=== PATIENT | female | born 1935 | race Caucasian/White ===

== ENCOUNTER → 2018-01-12 | Outpatient (CLI) | payer MEDICARE ==
--- NOTE | 2018-01-12 14:17 | RAD ---
EXAM: Chest, 2 views. HISTORY: Shortness of air. COMPARISON: None. FINDINGS: Frontal and lateral views of the chest are obtained. There are coarse diffuse increased interstitial markings. There is no consolidation, pleural effusion or pneumothorax. There is a prominent cardiac silhouette. There are prominent central pulmonary vessels. There is mild elevation of the right hemidiaphragm. There is lumbar scoliosis. IMPRESSION: Coarse diffuse increased interstitial markings due to chronic interstitial lung disease or atypical infiltrate. Correlation with prior studies may be useful if available. Electronically signed by: Jeri Gregorio MD (01/12/2018 2:14 PM) [place] [id number]
== END | disposition home or self-care (01) ==
LOC: DXRAD 13:25
PROVIDERS: ATTEND Internal Medicine Pulmonary Disease
DX: R05 Cough (principal); J98.6 Disorders of diaphragm; M41.86 Other forms of scoliosis, lumbar region
CPT/HCPCS: 71046

== ENCOUNTER → 2019-02-25 | Outpatient (CLI) | payer MEDICARE ==
--- NOTE | 2019-02-25 15:48 | RAD ---
DATE: 02/25/2019 EXAM: DIGITAL SCREEN BILAT W/CAD HISTORY: Routine screening COMPARISON: 04/03/2015, 04/28/2016, 07/03/2017 mammographic exams This study was interpreted with the benefit of Computerized Aided Detection (CAD). Breast Density: HETERO The breast parenchyma is heterogenously dense, which could reduce sensitivity of mammography. Breast parenchyma level C. FINDINGS: Tomosynthesis imaging was attempted to be performed for this patient's exam. The patient reportedly was not able to undergo tomosynthesis imaging for all projections of this exam. Biopsy clip marker involves the left upper central breast. No suspicious calcifications, masses, or distortion. IMPRESSION: Stable BI-RADS CATEGORY: 1 NEGATIVE RECOMMENDED FOLLOW-UP: 12M 12 MONTH FOLLOW-UP PQRS compliance statement: Patient information was entered into a reminder system with a target due date for the next mammogram. Mammography is a sensitive method for finding small breast cancers, but it does not detect them all and is not a substitute for careful clinical examination. A negative mammogram does not negate a clinically suspicious finding and should not result in delay in biopsying a clinically suspicious abnormality. "Our facility is accredited by the [employer] Mammography Program."
== END | disposition home or self-care (01) ==
LOC: MAMMO 10:21
PROVIDERS: ATTEND Family Medicine
DX: Z12.31 Encounter for screening mammogram for malignant neoplasm of breast (principal)
CPT/HCPCS: 77067

== ENCOUNTER → 2019-03-02 | Outpatient (CLI) | payer MEDICARE ==
[~2019-03-02] MED LIST: AZIT250T PO; CALC-56 PO; CEFD300C PO; CHOL200027 PO; LISI-334 PO; METO-247 PO; MULT-245 PO; OMEP20CA16 PO; VIT1TABL34 PO
--- NOTE | 2019-03-02 17:00 | RAD ---
EXAM: Dual energy x-ray absorptiometry (DEXA). HISTORY: Postmenopausal female presents for osteoporosis screening. COMPARISON: None. TECHNIQUE: Dual energy x-ray absorptiometry of the lumbar spine, right hip and left forearm was performed. Calculation of bone mineral density based on standard deviations above or below the expected young adult normal value (T-score) was completed. FINDINGS: The average bone mineral density in the 1st through 4th lumbar vertebrae is 1.425 g/cmxcm, corresponding with a T-score of 2.0. The average total bone mineral density in the right hip is 0.642 g/cmxcm, corresponding with a T-score of -2.5. The average total bone mineral density in the left radius is 0.377 g/cmxcm, corresponding with a T-score of -4.7. IMPRESSION: 1. Osteoporosis measured at the left forearm and borderline osteoporosis measured at the right hip. 2. Normal bone mineral density measured at the lumbar spine. Note: Definitions established by the World Health Organization: 1. Normal: T-score is -1.0 or above. 2. Osteopenia: T-score is between -1.0 and -2.5 . 3. Osteoporosis: T-score is -2.5 or below. Electronically signed by: Jeri Gregorio MD (03/02/2019 4:57 PM) [place] [id number]
--- NOTE | 2019-03-03 08:22 | RAD ---
EXAM: 1. Frontal pelvis with two-view right hip. 2. Right femur 2 views. HISTORY: Pelvic and right femoral pain. COMPARISON: None. FINDINGS: No acute fractures are identified throughout. There are changes of internal fixation of a chronic left infratrochanteric fracture. Small osteophytes indicate mild right hip osteoarthritis. The joint spaces of the left hip are maintained. Osteopenia appears mild for patient age. There is mild medial compartmental osteoarthritis at the right knee. There is a moderate lumbar dextroscoliosis with moderate to severe degenerative disc disease throughout the lower lumbar spine. Surgical clips and an anastomotic suture line are noted in the left hemipelvis. Calcifications in the right hemipelvis are indeterminate but may represent phleboliths. IMPRESSION: 1. Mild right hip osteoarthritis. 2. Mild medial compartmental osteoarthritis of the right knee. Electronically signed by: Analisa Sellers MD (03/03/2019 8:19 AM) [facility]
== END | disposition home or self-care (01) ==
LOC: DXRAD 14:58
PROVIDERS: ATTEND Family Medicine
DX: M81.0 Age-related osteoporosis without current pathological fracture (principal); M16.11 Unilateral primary osteoarthritis, right hip; M17.11 Unilateral primary osteoarthritis, right knee; M51.36 Other intervertebral disc degeneration, lumbar region; M25.751 Osteophyte, right hip
CPT/HCPCS: 73502; 73552; 77080; 77081

== ENCOUNTER 2019-03-17 15:28 | Inpatient (IN) | payer MEDICARE ==
[~2019-03-17] VITALS: Ht 160 cm; Wt 42.7 kg
[2019-03-17] MEDS ORDERED: IV NORMAL SALINE 1,000ML 1,000 ML IV SCH (15:48)
--- NOTE | 2019-03-17 15:57 | PHYS DOC ---
Past History Additional Past Medical Histor: pulmonary fibrosis Smoking: Non-smoker Alcohol Use: None Adult General Chief Complaint Chief Complaint: SHORTNESS OF BREATH HPI HPI Patient is an 84-year-old female, with a history of pulmonary fibrosis, on 2 L of oxygen chronically, who presents to the emergency department for increasing shortness of breath over the past several days. She recently returned from visiting family in [place] for the . She denies any pain, or increasing cough compared to her baseline cough with her pulmonary fibrosis. She has not had any fevers or chills, denies any chest pain, waking, or orthopnea. She went to see her PCP today, we did some basic blood tests (CBC and BMP which were drawn prior to arrival have been reviewed), and had ordered an outpatient CT of her chest, due to tachycardia, to rule out a pulmonary embolism, but the patient's creatinine was too high and she was thus sent to the emergency department. The patient denies any pain. She has not had any nausea, vomiting, or diarrhea. Her daughter reports that she has not been eating as well as she normally does. There are no alleviating or exacerbating factors to her symptoms otherwise. Review of Systems Review of Systems Constitutional: Denies fever or chills [] Eyes: Denies change in visual acuity, redness, or eye pain [] HENT: Denies nasal congestion or sore throat [] Respiratory: No additional information not addressed in HPI [] Cardiovascular:The patient denies any chest pain, palpitations, or orthopnea [] GI: Denies abdominal pain, nausea, vomiting, bloody stools or diarrhea [] : Denies dysuria or hematuria [] Musculoskeletal: Denies back pain or joint pain [] Integument: Denies rash or skin lesions [] Neurologic: Denies headache, focal weakness or sensory changes [] Endocrine: Denies polyuria or polydipsia [] All other systems were reviewed and found to be within normal limits, except as documented in this note. Current Medications Current Medications Current Medications Medications (Trade) Dose Ordered Sig/Zach Start Time Stop Time Status Last Admin Dose Admin Sodium Chloride 1,000 ml @ 100 mls/hr Q10H 03/17/19 15:48 03/18/19 01:47 UNV Allergies Allergies Allergies Coded Allergies Type Severity Reaction Last Updated Verified No Known Drug Allergies 03/17/19 No Physical Exam Physical Exam PHYSICAL EXAM: CONSTITUTIONAL: Well developed, well nourished HEAD: normocephalic, atraumatic EENT: PERRL, EOMI. Conjunctivae normal color, sclerae non-icteric; moist mucous membranes. NECK: Supple, non-tender; no meningismus. LUNGS: Breathing is mildly labored, there are diffuse crackles in all lung hinkle, with normal air movement otherwise. HEART: Irregularly irregular rhythm, no murmur CHEST: No deformity; non-tender ABDOMEN: The abdomen is soft, and non-tender, no masses or bruits. EXTREM: Normal ROM; no deformity, no calf tenderness. Normal pulses palpable in all extremities. There is no pedal edema. SKIN: No rash; no diaphoresis NEURO: Alert; normal speech and cognition; CN's grossly intact; strength grossly intact without focal deficit. BACK: No CVA TTP. Current Patient Data Lab Results Current Medications Medications (Trade) Dose Ordered Sig/Zach Route PRN Reason Start Time Stop Time Status Last Admin Dose Admin Sodium Chloride 1,000 ml @ 100 mls/hr Q10H IV 03/17/19 15:48 03/18/19 01:47 03/17/19 15:48 EKG EKG []Normal sinus rhythm at a rate of 115 beats for minute with frequent APCs, normal axis, normal intervals, nonspecific ST/T changes are present. Radiology/Procedures Radiology/Procedures PROCEDURE: CHEST PA & LATERAL EXAM: Chest, 2 views. HISTORY: Shortness of breath. COMPARISON: 01/12/2018 FINDINGS: 2 views of the chest are obtained. There is right upper lobe consolidated infiltrate superimposed on coarse likely chronic interstitial changes throughout the right greater than left lung. There is biapical pleural thickening likely due to scarring. There is a stable cardiac silhouette. There are calcified granulomas. There is thoracolumbar scoliosis. IMPRESSION: 1. Right upper lobe consolidated infiltrate. Follow-up to confirm resolution and exclude a persistent underlying lesion. 2. Pulmonary fibrosis. There may be superimposed interstitial infiltrate.[] Course & Med Decision Making Course & Med Decision Making Pertinent Labs and Imaging studies reviewed. (See chart for details) []Blood tests from earlier today, prior to the ER visit, have been reviewed. The patient's condition Remains stable, I spoke with the hospitalist will admit the patient for further evaluation and treatment. Dragon Disclaimer Dragon Disclaimer This electronic medical record was generated, in whole or in part, using a voice recognition dictation system. Departure Departure: Impression: Primary Impression: Pneumonia Additional Impression: Pulmonary fibrosis Disposition: ADMITTED INPATIENT Condition: STABLE Referrals: ALMITA BRYAN MD (PCP) Problem Qualifiers JOHN HOGUE MD Mar 17, 2019 15:57
--- NOTE | 2019-03-17 15:58 | EKG ---
[address] [address] Test Date: 2019-03-17 Test Time: 15:56:53 Pat Name: ESTRELLA JOSEPH Department: Room: Gender: F Science Specialist: : [id number] Requested By: JOHN HOGUE Order Number: [id number] Reading MD: Measurements Intervals [place] Rate: 115 P: 49 NM: 140 QRS: 22 QRSD: 80 T: 7 QT: 338 QTc: 469 Interpretive Statements SINUS TACHYCARDIA ATRIAL PREMATURE COMPLEX(ES) QRS(T) CONTOUR ABNORMALITY CONSIDER INFERIOR MYOCARDIAL DAMAGE POSSIBLY ABNORMAL ECG RI6.01 No previous ECG available for comparison
--- NOTE | 2019-03-17 16:31 | RAD ---
EXAM: Chest, 2 views. HISTORY: Shortness of breath. COMPARISON: 01/12/2018 FINDINGS: 2 views of the chest are obtained. There is right upper lobe consolidated infiltrate superimposed on coarse likely chronic interstitial changes throughout the right greater than left lung. There is biapical pleural thickening likely due to scarring. There is a stable cardiac silhouette. There are calcified granulomas. There is thoracolumbar scoliosis. IMPRESSION: 1. Right upper lobe consolidated infiltrate. Follow-up to confirm resolution and exclude a persistent underlying lesion. 2. Pulmonary fibrosis. There may be superimposed interstitial infiltrate. Electronically signed by: Jeri Gregorio MD (03/17/2019 4:28 PM) [place] [id number]
[2019-03-17 16:45] LABS: ALBUMIN/GLOBULIN RATIO 0.6 (1.0-1.7); CALCIUM 9.4 mg/dL (8.5-10.1); CREATININE 1.7 mg/dL (0.6-1.0); GFR 28.7; POTASSIUM 3.9 mmol/L (3.5-5.1); TOTAL BILIRUBIN 0.4 mg/dL (0.2-1.0)
[2019-03-17 17:14] LABS: INFLUENZA A PATIENT NEGATIVE (NEGATIVE); INFLUENZA B PATIENT NEGATIVE (NEGATIVE)
[2019-03-17] MEDS ORDERED: IV NORMAL SALINE 250ML 250 ML ONE (17:24)
[2019-03-17] MEDS ORDERED: AZITHROMYCIN 500 MG VIAL. IV ONE (17:25)
[2019-03-17] MEDS ORDERED: cefTRIAXone SODIUM 1 GM VIAL ONE (17:25)
[2019-03-17] MEDS ORDERED: IV NORMAL SALINE 50ML 50 ML ONE (17:25)
[2019-03-17] MEDS ORDERED: AZITHROMYCIN 500 MG in IV NORMAL SALINE 250ML 250 ML IV ONE (17:30)
[2019-03-17 18:27] VITALS: BP 144/75
[2019-03-17] MEDS ORDERED: MULT-245 PO (18:38)
[2019-03-17] MEDS ORDERED: VIT1TABL34 PO (18:38)
[2019-03-17] MEDS ORDERED: OMEP-229 PO (18:38)
[2019-03-17] MEDS ORDERED: CHOL200027 PO (18:38)
[2019-03-17] MEDS ORDERED: CALC-56 PO (18:38)
[2019-03-17] MEDS ORDERED: LISI-334 PO (18:38)
[2019-03-17] MEDS ORDERED: METO-247 PO (18:38)
--- NOTE | 2019-03-17 19:19 | HP ---
ADMIT DATE: 03/17/2019 HISTORY OF PRESENT ILLNESS: The patient is an 84-year-old female patient who was seen today at her primary care physician's office with a complaint of shortness of breath over the past several days. She is known to have pulmonary fibrosis. She is usually on 2 liters of oxygen chronically. She has returned from visiting family in [place] over the . She denied any chest pain, any increasing cough. She has not had any fevers or chills. Denied any chest pain, orthopnea. She was seen by her primary care physician who did some lab works including a CBC and BMP, which were drawn prior to arrival. She ordered an outpatient CT of her chest due to tachycardia and to rule out pulmonary embolism, but the patient's creatinine was too high and she was thus sent to the emergency department. The patient denies any phlegm or hemoptysis. She was basically evaluated in the emergency room. Her chest x-ray showed that she has right upper lobe consolidated infiltrate and pulmonary fibrosis. There may be some superimposed interstitial infiltrate. Her EKG showed that she was in sinus tachycardia with a heart rate of 115 beats per minute. The patient was admitted with diagnosis of community-acquired pneumonia, was started on IV Rocephin and Zithromax and admitted for further evaluation. Her lab work showed that her white cell count was normal at 9600, hemoglobin 12, hematocrit 36.9, MCV 99 and platelet count 284,000. Her chemistry showed that her BUN is 59, creatinine 1.7. I unfortunately have no other values to compare with. PAST MEDICAL HISTORY: Significant for pulmonary fibrosis. She has also had hypertension. PAST SURGICAL HISTORY: Significant for partial colectomy for diverticulitis as well as appendectomy. She has also had left femur fracture, treated with intramedullary nailing. ALLERGIES: She has no known drug allergies. MEDICATIONS: She is currently on lisinopril 20 mg once a day, Toprol-XL 100 mg once a day, vitamin D 2000 International Unit once a day, calcium with vitamin D, multivitamin, PreserVision or Ocuvite 1 tablet once a day and omeprazole 20 mg once a day. FAMILY HISTORY: Noncontributory. SOCIAL HISTORY: She is , just moved recently to live in this community. She does not smoke, drink alcohol or use any recreational drugs. PHYSICAL EXAMINATION: GENERAL: When I examined her on arrival, she looked pale, cachectic, but no jaundice, cyanosis or thyromegaly. No jugular venous distention. No limb edema. VITAL SIGNS: Her heart rate was 95, blood pressure was 151/89, temperature was 98.4, respiratory rate was 16, and oxygen saturation was 95% on 2 liters of oxygen. HEAD, EYES, EARS, NOSE AND THROAT: Showed normocephalic, atraumatic. NECK: Supple. HEART: Showed normal first and second heart sounds. No gallop or murmur. CHEST: Shows central trachea, equally reduced expansion, reduced air entry, vesicular sounds with bilateral coarse crepitation, early inspiratory timing. She has also some crepitation in the right upper lobe anteriorly, best heard at the right infraclavicular area. I could not appreciate any rhonchi. ABDOMEN: Scaphoid, soft, nontender. NEUROLOGIC: She was awake, alert, responding appropriately. All cranial nerves intact. EXTREMITIES: She moves extremities without difficulty. She normally ambulates without assistance or assistive devices, although she uses a walker when she goes for longer distances. LABORATORY DATA: Her lab work on arrival to the emergency room showed white cell count of 9600, hemoglobin 12, hematocrit 36, MCV 99 and platelet count of 284,000 with a manual differential showed 95% polymorphs, 2% lymphocytes, 3% monocytes. Her prothrombin time was 9.3, INR of 0.9, aPTT was 32. Her serum sodium 142, potassium 3.9, chloride 103, bicarbonate 27, anion gap of 12, BUN 59, creatinine 1.7, estimated GFR was 28 mL per minute. Her glucose was 112, calcium was 9.4, lactic acid was 2, magnesium 2. Total bilirubin, AST, ALT, alkaline phosphatase were normal. Her beta natriuretic peptide was high at 2370. Total protein was 8, albumin 3. Her influenza A and B were negative and her chest x-ray showed that the patient has right upper lobe consolidated infiltrate, follow up to confirm resolution and exclude the persistent underlying lesion. She also has pulmonary fibrosis. There may be superimposed interstitial nephritis. The patient was admitted with diagnosis of community-acquired pneumonia involving her right upper lobe with the superimposed underlying pulmonary fibrosis and she is also known to have high blood pressure. IMPRESSION AND PLAN: Macular degeneration and gastroesophageal reflux disease. I will hold her lisinopril. Continue with IV fluids tonight. We will repeat her labs tomorrow. I will send urine for legionella antigen as well as streptococcal antigen and sputum for culture and sensitivity. CRESENCIO RENEE MD DR: ISIDRO/param JOB#: [id number] / [id number]
[2019-03-17] MEDS: IV NORMAL SALINE 1,000ML 1,000 ML IV SCH (20:04)
[2019-03-17 22:13] VITALS: BP 143/77
[2019-03-18] MEDS: IV NORMAL SALINE 1,000ML 1,000 ML IV SCH ×3 (04:32→20:15)
[2019-03-18 05:00] VITALS: BP 149/80
[2019-03-18 06:24] LABS: BASO % 0 % (0-3); EOS % 0 % (0-3); HEMATOCRIT 31.7 % (36.0-47.0); HEMOGLOBIN 10.4 g/dL (12.0-15.5); LYMPH # 0.3 x10^3/uL (1.0-4.8); LYMPH % 5 % (24-48); MEAN CORPUSCULAR HEMOGLOBIN 32 pg (25-35); MEAN CORPUSCULAR HGB CONC 33 g/dL (31-37); MEAN CORPUSCULAR VOLUME 98 fL (79-100); MONO # 0.3 x10^3/uL (0.0-1.1); MONO % 6 % (0-9); NEUT # 4.6 x10^3uL (1.8-7.7); NEUT % 89 % (31-73); PLATELET COUNT 201 x10^3/uL (140-400); RED BLOOD COUNT 3.23 x10^6/uL (3.50-5.40); RED CELL DISTRIBUTION WIDTH 13.8 % (11.5-14.5); WHITE BLOOD COUNT 5.2 x10^3/uL (4.0-11.0)
[2019-03-18 06:34] LABS: ALBUMIN 2.2 g/dL (3.4-5.0); ALBUMIN/GLOBULIN RATIO 0.5 (1.0-1.7); CALCIUM 8.1 mg/dL (8.5-10.1); CREATININE 1.3 mg/dL (0.6-1.0); GFR 39.1; POTASSIUM 3.7 mmol/L (3.5-5.1); TOTAL BILIRUBIN 0.5 mg/dL (0.2-1.0); TOTAL PROTEIN 6.5 g/dL (6.4-8.2)
[2019-03-18 07:12] VITALS: BP 149/80
[2019-03-18] MEDS: PANTOPRAZOLE 40 MG TABLET. PO SCH (07:30)
[2019-03-18] MEDS: MULTIVITAMIN with MINERAL TABLET. PO SCH (08:13)
[2019-03-18] MEDS: MULTIVITAMIN I-VITE TABLET. PO SCH (08:13)
[2019-03-18] MEDS: CHOLECALCIFEROL (VITAMIN D3) 1,000 UNIT TABLET PO SCH (08:14)
[2019-03-18] MEDS: CALCIUM CARB/VIT D3 500/200 TABLET PO SCH (08:14)
[2019-03-18] MEDS: METOPROLOL SUCC 24HR ER 50 MG TAB.ER.24H. PO SCH (08:14)
[2019-03-18] MEDS: IPRATRPIUM/ALBUTEROL 0.5/2.5MG 3 ML NEBU. NEB SCH ×4 (09:00→19:01)
[2019-03-18 11:00] VITALS: BP_SYST 109; BP_SYST 114; BP_DIAS 64; BP_DIAS 68
[2019-03-18 15:00] VITALS: BP 115/60
[2019-03-18] MEDS ORDERED: AZITHROMYCIN 500 MG in IV NORMAL SALINE 250ML 250 ML IV ONE ×2 (17:30→18:00)
[2019-03-18 19:00] VITALS: BP 146/71
[2019-03-18] MEDS: LACTOBACILLUS RHAMNOSUS GG 1 CAPSULE. PO SCH (20:41)
--- NOTE | 2019-03-18 22:57 | PN ---
DATE: 03/18/2019 SUBJECTIVE: The patient is resting, slightly propped up in bed, eating her lunch comfortably, in no apparent distress. On questioning her, she denied any complaints, in particular denied any chest pain or shortness of breath while at rest. She does complain of shortness of breath on exertion. PHYSICAL EXAMINATION: GENERAL: When I examined her, she was slightly pale, no jaundice, cyanosis or thyromegaly. No jugular venous distention. No limb edema. VITAL SIGNS: Her heart rate was 81, blood pressure was 114/64, temperature was 98, respiratory rate 22, and oxygen saturation was 96% on 2 liters of oxygen, her oxygen was 82% on room air at rest. HEAD, EYES, EARS, NOSE AND THROAT: Showed normocephalic, atraumatic. NECK: Supple. HEART: Showed normal first and second heart sounds. No gallop or murmur. CHEST: Shows central trachea, equally reduced expansion, reduced air entry, vesicular sounds, bilateral coarse inspiratory crackles. She has more crackles in the right upper lobe, best heard at the right infraclavicular area. I could not appreciate any rhonchi. ABDOMEN: Scaphoid, soft, nontender. NEUROLOGIC: She is awake, alert, responding appropriately. All cranial nerves intact. She moves extremities without difficulty. She ambulates with a walker. Her intake was 1615, no output was recorded. LABORATORY DATA: Her lab work this morning showed a serum sodium 147, potassium 3.7, chloride 110, bicarbonate 27, anion gap of 10, BUN 43, creatinine was 1.3, estimated GFR was 39 mL per minute. Her glucose 197, calcium was 8.1. Total bilirubin, AST, ALT, alkaline phosphatase were normal. Total protein was 6.5, albumin 2.2. Beta-natriuretic peptide was high at 5888 and her lactic acid was down to 0.8. Her prothrombin time was 9.3, INR of 0.9, aPTT was 32. Her influenza A and B were negative. We did send urine for legionella and streptococcal pneumoniae antigen, the results are still pending. ASSESSMENT: 1. Community-acquired pneumonia for which she is now on IV Rocephin and Zithromax. 2. Chronic hypoxic respiratory failure. 3. Idiopathic pulmonary fibrosis. 4. Hypertension. 5. Acute on chronic kidney injury. 6. Hypernatremia. 7. Mild hypokalemia. PLAN: We discontinued her IV fluids for now. We will continue with oxygen supplementation. Continue with IV antibiotic. We will monitor her closely and aiming to treat her with IV antibiotic for at least 2-3 days and then she can be discharged back home to continue an oral antibiotic. CRESENCIO RENEE MD DR: ISIDRO/param JOB#: [id number] / [id number]
[2019-03-18 23:10] VITALS: BP 156/73
[2019-03-19 05:08] VITALS: BP 135/78
[2019-03-19] MEDS: IPRATRPIUM/ALBUTEROL 0.5/2.5MG 3 ML NEBU. NEB SCH ×4 (05:20→20:25)
[2019-03-19 06:45] LABS: HEMATOCRIT 30.3 % (36.0-47.0); HEMOGLOBIN 9.9 g/dL (12.0-15.5); RED BLOOD COUNT 3.1 x10^6/uL (3.50-5.40); WHITE BLOOD COUNT 6.2 x10^3/uL (4.0-11.0)
[2019-03-19 06:47] LABS: CALCIUM 8.6 mg/dL (8.5-10.1); CREATININE 1.1 mg/dL (0.6-1.0); GFR 47.4; POTASSIUM 3.2 mmol/L (3.5-5.1)
[2019-03-19] MEDS ORDERED: POTASSIUM CHLORIDE 20 MEQ TABLET.ER. PO ONE (07:45)
[2019-03-19] MEDS: CALCIUM CARB/VIT D3 500/200 TABLET PO SCH (08:13)
[2019-03-19] MEDS: MULTIVITAMIN I-VITE TABLET. PO SCH (08:13)
[2019-03-19] MEDS: METOPROLOL SUCC 24HR ER 50 MG TAB.ER.24H. PO SCH (08:14)
[2019-03-19] MEDS: LACTOBACILLUS RHAMNOSUS GG 1 CAPSULE. PO SCH ×2 (08:15→19:32)
[2019-03-19] MEDS: PANTOPRAZOLE 40 MG TABLET. PO SCH (08:15)
[2019-03-19] MEDS: CHOLECALCIFEROL (VITAMIN D3) 1,000 UNIT TABLET PO SCH (08:15)
[2019-03-19] MEDS: MULTIVITAMIN with MINERAL TABLET. PO SCH (08:15)
[2019-03-19 10:30] VITALS: BP 163/69
--- NOTE | 2019-03-19 11:05 | PN ---
DATE: 03/19/2019 SUBJECTIVE: The patient is resting, slightly propped up in bed and continued to complain of shortness of breath on exertion. She is comfortable at rest. She continued to desaturate without oxygen even at rest. OBJECTIVE: GENERAL: When I examined her, she was pale and cachectic, but no jaundice, cyanosis or thyromegaly. No jugular venous distention. No lower limb edema. VITAL SIGNS: Her heart rate was 82, blood pressure was 160/70, temperature was 98.4, respiratory rate 20 and oxygen saturation was 95% on 2 liters of oxygen. HEAD, EYES, EARS, NOSE AND THROAT: Normocephalic, atraumatic. NECK: Supple. HEART: Showed normal first and second heart sounds. No gallop or murmur. CHEST: Shows central trachea, equally reduced expansion, reduced air entry, vesicular sounds with bilateral early coarse inspiratory crackles bilaterally. She has also some crackles on the right upper lobe, best heard in the right infraclavicular area. I could not appreciate any rhonchi. ABDOMEN: Scaphoid, soft, nontender. NEUROLOGIC: She is awake, alert, responding appropriately. All cranial nerves intact. She moves extremities without difficulty. She ambulates with a walker. Her intake was 1500, no output was recorded. LABORATORY DATA: Her lab work this morning showed serum sodium slightly better at 146, potassium 3.2, chloride 110, bicarbonate 27, anion gap of 9, BUN 31, creatinine 1.1, estimated GFR was 47 mL per minute. Her glucose was 106, calcium was 8.6. White cell count was 6200, hemoglobin 9.9, hematocrit 30, MCV 98 and platelet count 219,000. ASSESSMENT: 1. Community-acquired pneumonia, for which she continues to be on IV Rocephin and Zithromax. 2. Chronic hypoxic respiratory failure. 3. Diabetic pulmonary fibrosis. 4. Hypertension. 5. Acute on chronic kidney injury. 6. Hypernatremia. 7. Mild hyperkalemia. PLAN: To continue with oxygen supplementation. Continue with IV antibiotic. Hopefully discharge her back tomorrow on oral cefdinir and Zithromax. CRESENCIO RENEE MD DR: ISIDRO/param JOB#: [id number] / [id number]
[2019-03-19] MEDS: LISINOPRIL 20 MG TABLET PO SCH (12:16)
[2019-03-19 16:05] VITALS: BP 148/75
[2019-03-19] MEDS: AZITHROMYCIN 250 MG TABLET. PO SCH (16:51)
[2019-03-19 19:51] VITALS: BP 156/80
[2019-03-20] MEDS: IPRATRPIUM/ALBUTEROL 0.5/2.5MG 3 ML NEBU. NEB SCH (05:16)
[2019-03-20 06:21] VITALS: BP 169/68
[2019-03-20 07:29] LABS: CALCIUM 8.6 mg/dL (8.5-10.1); CREATININE 0.8 mg/dL (0.6-1.0); GFR 68.5; POTASSIUM 3.6 mmol/L (3.5-5.1)
[2019-03-20] MEDS: MULTIVITAMIN with MINERAL TABLET. PO SCH (08:45)
[2019-03-20] MEDS: CHOLECALCIFEROL (VITAMIN D3) 1,000 UNIT TABLET PO SCH (08:45)
[2019-03-20] MEDS: MULTIVITAMIN I-VITE TABLET. PO SCH (08:45)
[2019-03-20] MEDS: CALCIUM CARB/VIT D3 500/200 TABLET PO SCH (08:45)
[2019-03-20] MEDS: AZITHROMYCIN 250 MG TABLET. PO SCH (08:45)
[2019-03-20] MEDS: LACTOBACILLUS RHAMNOSUS GG 1 CAPSULE. PO SCH (08:45)
[2019-03-20] MEDS: PANTOPRAZOLE 40 MG TABLET. PO SCH (08:46)
[2019-03-20] MEDS: METOPROLOL SUCC 24HR ER 50 MG TAB.ER.24H. PO SCH (08:46)
[2019-03-20] MEDS: LISINOPRIL 20 MG TABLET PO SCH (08:47)
[2019-03-20] MEDS ORDERED: CEFD300C PO (10:30)
[2019-03-20] MEDS ORDERED: AZIT250T PO (10:30)
--- NOTE | 2019-03-20 10:50 | DS ---
DATE OF DISCHARGE: 03/20/2019 HOSPITAL COURSE: The patient is an 84-year-old female patient who was originally at her primary care physician with a complaint of worsening shortness of breath over the past several days after she returned from visiting her family in [place] for . She denied at that time any chest pain, increasing cough; however, had a chest x-ray, which showed that she has right upper lobe pneumonia and therefore, she was admitted with community-acquired pneumonia, was started on IV Rocephin and Zithromax. She was also found to have acute kidney injury. Her creatinine was 1.7. Did have also hypokalemia and did actually start her on some IV fluid and her kidney function has steadily improved. In fact, her creatinine came down from 1.7-0.8. Her blood cultures are so far negative after 2 days. We did send urine for legionella antigen as well as streptococcal pneumoniae antigen, but the result of which is still pending at the time of this dictation. When I saw her today, the patient looked well and was clearly in no apparent respiratory distress. She is awake, alert and she expressed her desire to go home. PHYSICAL EXAMINATION: GENERAL: When I examined her, she was pale, cachectic, but no jaundice, cyanosis or thyromegaly. No jugular venous distention. No limb edema. VITAL SIGNS: Her heart rate was 108, blood pressure was 169/68, temperature was 98.3, respiratory rate was 18 and oxygen saturation was 96% on 2 liters of oxygen. HEAD, EYES, EARS, NOSE AND THROAT: Showed normocephalic, atraumatic. NECK: Supple. HEART: Showed normal first and second heart sounds. No gallop or murmur. CHEST: Shows central trachea, equally reduced expansion, reduced air entry, vesicular sounds with coarse early inspiratory crackles. I could not appreciate any rhonchi. ABDOMEN: Scaphoid, soft, nontender. NEUROLOGIC: She is awake, alert, responding appropriately. All cranial nerves intact. She ambulates with a walker. Her intake was 800, no output was recorded. LABORATORY DATA: This morning showed a serum sodium of 145, potassium 3.6, chloride 107, bicarbonate 27, anion gap of 11, BUN is 17, creatinine 0.8, estimated GFR was 68 mL per minute. Her glucose 111, calcium was 8.6. Her white cell count was 6200, hemoglobin 10, hematocrit 30, MCV 98 and platelet count 219,000. Her influenza A and B were negative. DISCHARGE MEDICATIONS: The patient was discharged home to continue on cefdinir 300 mg twice a day for 7 more days, Zithromax 250 mg once a day for 3 more days. Should continue also on other medication including calcium with vitamin D one tablet once a day, vitamin D3 2000 international unit once a day, lisinopril 20 mg once a day, metoprolol succinate 100 mg once a day, multivitamin 1 tablet once a day, omeprazole 20 mg once a day, and multivitamin for PreserVision AREDS tablet 1 tablet once a day. FINAL DISCHARGE DIAGNOSES: 1. Community-acquired pneumonia. 2. Acute on chronic hypoxic respiratory failure. 3. Idiopathic pulmonary fibrosis. 4. Hypertension. 5. Acute kidney injury has resolved. Her creatinine came down from 1.7-0.8 6. Normochromic normocytic anemia. 7. Hypokalemia, resolved. CRESENCIO RENEE MD DR: ISIDRO/param JOB#: [id number] / [id number]
[2019-03-20 11:19] VITALS: BP 161/89
== END 2019-03-20 11:20 | disposition home or self-care (01) | DRG 682 ==
LOC: ER 15:28 → 1 SOUTH 18:06
PROVIDERS: ADMIT Internal Medicine; ATTEND Internal Medicine
DX: N17.0 Acute kidney failure with tubular necrosis (principal); J18.9 Pneumonia, unspecified organism; J96.21 Acute and chronic respiratory failure with hypoxia; E87.0 Hyperosmolality and hypernatremia; J84.112 Idiopathic pulmonary fibrosis; K21.9 Gastro-esophageal reflux disease without esophagitis; H35.30 Unspecified macular degeneration; I12.9 Hypertensive chronic kidney disease with stage 1 through stage 4 chronic kidney disease, or unspecified chronic kidney disease; N18.9 Chronic kidney disease, unspecified; E87.6 Hypokalemia; E11.22 Type 2 diabetes mellitus with diabetic chronic kidney disease; D64.9 Anemia, unspecified; Z99.81 Dependence on supplemental oxygen; Z90.49 Acquired absence of other specified parts of digestive tract
CPT/HCPCS: 36415; 71046; 80048; 80053; 83605; 83735; 83880; 84484; 85007; 85025; 85027; 85610; 85730; 87040; 87449; 87804; 93005; 94640; 94760; 96361; 96365; 96368; J0456; J0696; J7050; J7620; 99285-25; J7030

== ENCOUNTER → 2019-03-17 | Outpatient (CLI) | payer MEDICARE ==
[~2019-03-17] MED LIST changes: +IOHEXOL 350 MG/ML 100 ML VIAL. IV ONE; +OMEP-229 PO; -OMEP20CA16 PO
[2019-03-17 15:06] LABS: BASO % 0 % (0-3); EOS % 0 % (0-3); HEMATOCRIT 36.9 % (36.0-47.0); LYMPH # 0.2 x10^3/uL (1.0-4.8); LYMPH % 2 % (24-48); MEAN CORPUSCULAR HEMOGLOBIN 32 pg (25-35); MEAN CORPUSCULAR HGB CONC 33 g/dL (31-37); MEAN CORPUSCULAR VOLUME 99 fL (79-100); MONO # 0.3 x10^3/uL (0.0-1.1); MONO % 3 % (0-9); NEUT # 9.1 x10^3uL (1.8-7.7); NEUT % 95 % (31-73); PLATELET COUNT 284 x10^3/uL (140-400); RED BLOOD COUNT 3.74 x10^6/uL (3.50-5.40); RED CELL DISTRIBUTION WIDTH 14.1 % (11.5-14.5); WHITE BLOOD COUNT 9.6 x10^3/uL (4.0-11.0)
[2019-03-17 16:13] LABS: % BANDS 14 % (0-9); % LYMPHS 4 % (24-48); % MONOS 4 % (0-10); % MYELOS 2 % (0-0); % SEGS 76 % (35-66); PLT ESTIMATE ADEQUATE (ADEQUATE)
== END | disposition home or self-care (01) ==
LOC: CT 14:33
PROVIDERS: ATTEND Family Medicine
DX: J96.21 Acute and chronic respiratory failure with hypoxia (principal); R53.83 Other fatigue
CPT/HCPCS: 36415; 85007; 85025

== ENCOUNTER → 2019-04-01 | Outpatient (CLI) | payer MEDICARE ==
[2019-03-20 11:19] VITALS: BP 161/89
[~2019-04-01] MED LIST changes: -IOHEXOL 350 MG/ML 100 ML VIAL. IV ONE
[2019-04-01 11:18] LABS: BASO # 0.1 x10^3/uL (0.0-0.2); BASO % 1 % (0-3); EOS # 0.1 x10^3/uL (0.0-0.7); EOS % 2 % (0-3); HEMATOCRIT 32.6 % (36.0-47.0); HEMOGLOBIN 10.8 g/dL (12.0-15.5); LYMPH # 1.1 x10^3/uL (1.0-4.8); LYMPH % 18 % (24-48); MEAN CORPUSCULAR HEMOGLOBIN 32 pg (25-35); MEAN CORPUSCULAR HGB CONC 33 g/dL (31-37); MEAN CORPUSCULAR VOLUME 96 fL (79-100); MONO # 0.5 x10^3/uL (0.0-1.1); MONO % 9 % (0-9); NEUT # 4.1 x10^3uL (1.8-7.7); NEUT % 70 % (31-73); PLATELET COUNT 548 x10^3/uL (140-400); RED CELL DISTRIBUTION WIDTH 13.8 % (11.5-14.5); WHITE BLOOD COUNT 5.9 x10^3/uL (4.0-11.0)
--- NOTE | 2019-04-01 11:20 | RAD ---
CHEST PA LATERAL Clinical indications: Respiratory failure follow-up study COMPARISON: March 17, 2019 Findings: There is a consolidative right upper lobe lung infiltrate still evident. There has been minimal improvement. There is diffuse interstitial lung infiltrates bilaterally which are stable. No pleural effusion or pneumothorax is seen. The heart size, pulmonary vasculature, mediastinum and both boyd are stable. Impression: Minimal improvement in right upper lobe lung infiltrate. Electronically signed by: Adan Moran MD (04/01/2019 11:17 AM) [facility]
[2019-04-01 11:27] LABS: ALBUMIN 3.1 g/dL (3.4-5.0); ALBUMIN/GLOBULIN RATIO 0.7 (1.0-1.7); CREATININE 1.2 mg/dL (0.6-1.0); GFR 42.9; POTASSIUM 4.1 mmol/L (3.5-5.1); TOTAL BILIRUBIN 0.2 mg/dL (0.2-1.0); TOTAL PROTEIN 7.7 g/dL (6.4-8.2)
== END | disposition home or self-care (01) ==
LOC: DXRAD 10:41
PROVIDERS: ATTEND Family Medicine
DX: J96.21 Acute and chronic respiratory failure with hypoxia (principal); R91.8 Other nonspecific abnormal finding of lung field; R53.83 Other fatigue
CPT/HCPCS: 36415; 71046; 80053; 85025

== ENCOUNTER → 2019-04-22 | Outpatient (CLI) | payer MEDICARE ==
[~2019-04-22] MED LIST changes: -OMEP-229 PO; +OMEP20CA16 PO
--- NOTE | 2019-04-22 14:56 | RAD ---
CHEST PA LATERAL History: Bacterial pneumonia Comparison: April 01, 2019 Findings: 2 views of the chest are submitted. There is again coarse interstitial and reticular opacity bilaterally likely component of chronic interstitial fibrotic change. There is some persistent hazy airspace opacity of the right upper lobe slightly decreased. There is no pneumothorax or dependent pleural fluid. Pericardial cardiac silhouette is stable. There is lumbar dextroscoliosis. There is somewhat tortuous thoracic aorta, atherosclerotic calcification near aortic arch. Impression: 1. There is some persistent airspace opacity/infiltrate of the right upper lobe. There is again evidence of chronic interstitial lung disease. Electronically signed by: Alexi Friedman MD (04/22/2019 2:53 PM) [facility]
== END | disposition home or self-care (01) ==
LOC: DXRAD 09:47
PROVIDERS: ATTEND Family Medicine
DX: J84.89 Other specified interstitial pulmonary diseases (principal); I70.0 Atherosclerosis of aorta; M41.86 Other forms of scoliosis, lumbar region
CPT/HCPCS: 71046

== ENCOUNTER → 2019-05-02 | Outpatient (CLI) | payer MEDICARE ==
--- NOTE | 2019-05-02 14:25 | RAD ---
Noncontrast CT scan of the chest compared to chest x-ray dated April 22, 2023 bacterial pneumonia. TECHNIQUE: Contiguous helical 1 mm axial images are obtained from the thoracic inlet to the base of diaphragm. Sagittal and coronal reformations are evaluated. FINDINGS: Extensive changes of honeycombing bilaterally, with bibasilar predominance, and greater on the right than the left. Findings are most consistent with advanced interstitial pulmonary fibrosis. There is somewhat diffuse ground glass infiltrate throughout the right upper lung which may represent superimposed infectious or inflammatory pneumonitis. No suspicious lung masses or nodules are identified. Calcified granuloma seen in the left lung base. There are several mediastinal and hilar lymph nodes, none of which are enlarged or demonstrate suspicious morphology. Heart size is enlarged. The right kidney is markedly atrophic relative to left, but is incompletely visualized. This may reflect renal artery stenosis and could be better evaluated with three-phase CT scan of the abdomen and pelvis if clinically warranted. There is a left renal cyst. There are granulomas in the spleen. There is atherosclerosis of the aorta. No suspicious osteoblastic or osteolytic bone lesions are seen. IMPRESSION: 1. Severe IPF with extensive bilateral honeycombing. 2. Right upper lobe pneumonitis, inflammatory versus infectious. 3. No suspicious lung nodules or masses. 4. Antecedent granulomatous disease. 5. Atrophic right kidney of uncertain etiology. Incompletely visualized. Consider further evaluation with three-phase CT scan of the abdomen and pelvis to rule out renal artery stenosis. 6. Simple cyst in the left lobe of liver. 7. Other chronic changes as described. PQRS Compliance Statement: One or more of the following individualized dose reduction techniques were utilized for this examination: 1. Automated exposure control 2. Adjustment of the mA and/or kV according to patient size 3. Use of iterative reconstruction technique Electronically signed by: Sterling Dean MD (05/02/2019 2:23 PM) [facility]
== END | disposition home or self-care (01) ==
LOC: CT 09:44
PROVIDERS: ATTEND Family Medicine
DX: R91.8 Other nonspecific abnormal finding of lung field (principal); J15.9 Unspecified bacterial pneumonia; J84.10 Pulmonary fibrosis, unspecified; D71 Functional disorders of polymorphonuclear neutrophils; K76.89 Other specified diseases of liver; I70.0 Atherosclerosis of aorta; I51.7 Cardiomegaly; N28.1 Cyst of kidney, acquired
CPT/HCPCS: 71250

== ENCOUNTER 2021-01-25 16:27 | Emergency (ER) | payer MEDICARE ==
[~2021-01-25] VITALS: Ht 160 cm; Wt 35.0 kg
[~2021-01-25 16:27] MED LIST changes: -LISI-334 PO; +LISI20TA18 PO
[2021-01-25] MEDS ORDERED: traMADol 50 MG TABLET PO ONE (16:45)
--- NOTE | 2021-01-25 17:10 | RAD ---
Exam: Right hip 2 views INDICATION: Fall from standing TECHNIQUE: Frontal view of pelvis with frontal and frog-leg lateral views the right hip Comparisons: None FINDINGS: There is a impacted subcapital right femoral neck fracture. No other acute fractures identified. Diff use osteopenia. Fixation at the left femur noted. Joint spaces are well-maintained. IMPRESSION: Impacted subcapital right femoral neck fracture. Electronically signed by: Adwoa Ocampo MD (01/25/2021 5:07 PM) [facility]
[2021-01-25 17:30] VITALS: BP 175/70
[2021-01-25 17:47] LABS: BASO % 0 % (0-3); EOS # 0.1 x10^3/uL (0.0-0.7); EOS % 1 % (0-3); HEMATOCRIT 37.4 % (36.0-47.0); LYMPH # 1.1 x10^3/uL (1.0-4.8); LYMPH % 12 % (24-48); MEAN CORPUSCULAR HEMOGLOBIN 32 pg (25-35); MEAN CORPUSCULAR HGB CONC 32 g/dL (31-37); MEAN CORPUSCULAR VOLUME 99 fL (79-100); MONO # 0.6 x10^3/uL (0.0-1.1); MONO % 6 % (0-9); NEUT # 7.2 x10^3uL (1.8-7.7); NEUT % 80 % (31-73); PLATELET COUNT 226 x10^3/uL (140-400); RED BLOOD COUNT 3.79 x10^6/uL (3.50-5.40); RED CELL DISTRIBUTION WIDTH 13.5 % (11.5-14.5)
[2021-01-25 17:51] LABS: CALCIUM 8.8 mg/dL (8.5-10.1); CREATININE 0.8 mg/dL (0.6-1.0); GFR 68.2; POTASSIUM 4.2 mmol/L (3.5-5.1)
[2021-01-25 17:57] LABS: ALBUMIN 3.2 g/dL (3.4-5.0); ALBUMIN/GLOBULIN RATIO 0.9 (1.0-1.7); TOTAL BILIRUBIN 0.3 mg/dL (0.2-1.0); TOTAL PROTEIN 6.9 g/dL (6.4-8.2)
--- NOTE | 2021-01-25 18:00 | PHYS DOC ---
Past History Past Medical History: Hypertension, Other Additional Past Medical Histor: pulmonary fibrosis, osteoporosis (ROLAND DELANEY) Past Surgical History: Other (Colostomy [id number] at age ~49) (ROLAND DELANEY) Smoking: Non-smoker Alcohol Use: None Drug Use: None (ROLAND DELANEY) General Adult EDM: Chief Complaint: MECHANICAL FALL HPI: HPI: Patient is an 86 year old female with history of osteoporosis, hypertension and idiopathic pulmonary fibrosis who presents with right hip pain status post fall from standing 30 minutes prior to arrival. She rates her pain 5/10 at rest and is unable to ambulate. Patient states she was standing between her bed and her dresser when she fell to the floor. She crawled to the door and called for help. Patient denies head trauma, loss of consciousness, weakness, dizziness, frequent falls. Per patient, her last bowel movement was this morning or yesterday evening. She also denies chest pain, palpitations, shortness of breath, cough, abdominal pain, N/V/D, constipation. (ROLAND DELANEY) Review of Systems: Review of Systems: 12 systems reviewed. ROS negative except as mentioned in HPI. (ROLAND DELANEY) Current Medications: Current Meds: Current Medications Medications (Trade) Dose Ordered Sig/Zach Start Time Stop Time Status Last Admin Dose Admin Tramadol HCl (Ultram) 50 mg 1X ONCE 01/25/21 16:45 01/25/21 16:48 DC 01/25/21 17:02 50 MG (ROLAND DELANEY) Allergies: Allergies: Allergies Coded Allergies Type Severity Reaction Last Updated Verified No Known Drug Allergies 03/17/19 No (ROLAND DELANEY) Physical Exam: PE: Constitutional: Patient is very thin, no acute distress, non-toxic appearance. Eyes: PERRLA, EOMI, conjunctiva normal, no discharge. Neck: Normal range of motion, no tenderness, supple, no stridor. Cardiovascular: Heart rate regular rhythm, no murmur. Lungs & Thorax: Breath sounds decreased diffusely, consistent with patient history of pulmonary fibrosis. Abdomen: Bowel sounds normal, soft, no tenderness, no masses, no pulsatile masses. Skin: Warm, dry, no erythema, no rash. Unable to evaluate reported pressure ulcer. Back: No obvious deformity, no tenderness, no CVA tenderness. Extremities: Right hip with no range of motion secondary to pain. Extremities otherwise no tenderness, no cyanosis, no clubbing, ROM intact, no edema. Neurovascular intact in extremities x4. Neurologic: Alert and oriented x3, patient does repeat her pain scale and past medical history, motor function on exam consistent with body habitus and baseline, normal sensory function, no focal deficits noted. (ROLAND DELANEY) Current Patient Data: Labs: Laboratory Tests Test 01/25/21 17:09 01/25/21 17:30 White Blood Count 9.0 x10^3/uL (4.0-11.0) Red Blood Count 3.79 x10^6/uL (3.50-5.40) Hemoglobin 12.0 g/dL (12.0-15.5) Hematocrit 37.4 % (36.0-47.0) Mean Corpuscular Volume 99 fL (79-100) Mean Corpuscular Hemoglobin 32 pg (25-35) Mean Corpuscular Hemoglobin Concent 32 g/dL (31-37) Red Cell Distribution Width 13.5 % (11.5-14.5) Platelet Count 226 x10^3/uL (140-400) Neutrophils (%) (Auto) 80 % (31-73) Lymphocytes (%) (Auto) 12 % (24-48) Monocytes (%) (Auto) 6 % (0-9) Eosinophils (%) (Auto) 1 % (0-3) Basophils (%) (Auto) 0 % (0-3) Neutrophils # (Auto) 7.2 x10^3uL (1.8-7.7) Lymphocytes # (Auto) 1.1 x10^3/uL (1.0-4.8) Monocytes # (Auto) 0.6 x10^3/uL (0.0-1.1) Eosinophils # (Auto) 0.1 x10^3/uL (0.0-0.7) Basophils # (Auto) 0.0 x10^3/uL (0.0-0.2) Sodium Level 143 mmol/L (136-145) Potassium Level 4.2 mmol/L (3.5-5.1) Chloride Level 106 mmol/L (98-107) Carbon Dioxide Level 35 mmol/L (21-32) Anion Gap 2 (6-14) Blood Urea Nitrogen 15 mg/dL (7-20) Creatinine 0.8 mg/dL (0.6-1.0) Estimated GFR (Cockcroft-Gault) 68.2 BUN/Creatinine Ratio 19 (6-20) Glucose Level 113 mg/dL (70-99) Calcium Level 8.8 mg/dL (8.5-10.1) Total Bilirubin 0.3 mg/dL (0.2-1.0) Aspartate Amino Transf (AST/SGOT) 16 U/L (15-37) Alanine Aminotransferase (ALT/SGPT) 21 U/L (14-59) Alkaline Phosphatase 61 U/L (46-116) Total Protein 6.9 g/dL (6.4-8.2) Albumin 3.2 g/dL (3.4-5.0) Albumin/Globulin Ratio 0.9 (1.0-1.7) Urine Collection Type U cath Urine Color Yellow Urine Clarity Clear Urine pH 7.0 Urine Specific [place] 1.025 Urine Protein 100 mg/dl (NEG-TRACE) Urine Glucose (UA) Neg mg/dL (NEG) Urine Ketones (Stick) Neg mg/dL (NEG) Urine Blood Neg (NEG) Urine Nitrite Neg (NEG) Urine Bilirubin Neg (NEG) Urine Urobilinogen Dipstick 0.2 mg/dL (0.2 mg/dL) Urine Leukocyte Esterase Neg (NEG) Urine RBC 1-2 /HPF (0-2) Urine WBC 5-10 /HPF (0-4) Urine Squamous Epithelial Cells Few /LPF Urine Bacteria 0 /HPF (0-FEW) Vital Signs: Vital Signs Date Time Temp Pulse Resp B/P (MAP) Pulse Ox O2 Delivery O2 Flow Rate FiO2 01/25/21 17:02 18 100 Room Air 3.0 01/25/21 16:45 98.2 67 188/84 (118) (ROLAND DELANEY) EKG: EKG: EKG Interpreted by Dr. Frank: Regular rate and rhythm 71 bpm with no ectopic beats, though some artifact from movement. No concerning ST-T wave changes. Regular QR interval. (ROLAND DELANEY) Radiology/Procedures: Radiology/Procedures: PROCEDURE: HIP RIGHT 2V WITH PELVIS Exam: Right hip 2 views INDICATION: Fall from standing TECHNIQUE: Frontal view of pelvis with frontal and frog-leg lateral views the right hip Comparisons: None FINDINGS: There is a impacted subcapital right femoral neck fracture. No other acute fractures identified. Diffuse osteopenia. Fixation at the left femur noted. Joint spaces are well-maintained. IMPRESSION: Impacted subcapital right femoral neck fracture. Electronically signed by: Adwoa Ocampo MD (01/25/2021 5:07 PM) [facility] (ROLAND DELANEY) Heart Score: C/O Chest Pain: No (ROLAND DELANEY) Course & Med Decision Making: Course & Med Decision Making Pertinent Labs and Imaging studies reviewed. (See chart for details) Per patient's daughter, patient recently has had "issues with short-term memory," without a diagnosis of dementia. Patient has been evaluated for palliative care, which she is supposed to start next week due to failure to thrive. Patient's somewhat recently, and since that time she is not eating much, only gets out of bed to go to the kitchen or to use the bathroom. Daughter also states she has a bedsore, which she saw Thursday that had not broken through skin. Patient is very private, and does not like either her daughter or nursing staff seeing her groin or buttocks. This has made obtaining a urine sample and evaluating her bedsore difficult. Patient has R impacted femoral neck fracture. Spoke to Dr. Arenas orthopedic surgeon at 1830. He advised NPO after midnight and emphasized need for extreme caution with the patient's hip as to not worsen the fracture and make surgical correction more difficult. 183: Dr. Greenwood at [facility] accepts patient med/surg. (ROLAND DELANEY) Course & Med Decision Making I was the Attending physician on the above date of service of this patient. This patient was evaluated, examined, treated, and dispositioned from the emergency department by the mid-level practitioner. I reviewed case and agreed need for hospital transfer. Electronically signed, Leonor Quevedo DO (LEONOR QUEVEDO DO) Umair Disclaimer: Umair Disclaimer: This electronic medical record was generated, in whole or in part, using a voice recognition dictation system. (ROLAND DELANEY) Departure Departure: Impression: Primary Impression: Closed fracture of neck of right femur Qualified Codes: S72.001A - Fracture of unspecified part of neck of right femur, initial encounter for closed fracture Disposition: 02 SHORT TERM HOSPITAL (Dr. Greenwood [facility]) Condition: STABLE Referrals: ALMITA BRYAN MD (PCP) ROLAND DELANEY Jan 25, 2021 18:00 LEONOR QUEVEDO DO Jan 27, 2021 13:11
[2021-01-25] MEDS ORDERED: MORPHINE SULFATE 4 MG/ML DISP.SYRIN. IV ONE (18:15)
[2021-01-25 19:15] LABS: BACTERIA,URINE 0 /HPF (0-FEW); BILIRUBIN,URINE NEG (NEG); CLARITY,URINE CLEAR; COLOR,URINE YELLOW; GLUCOSE,URINE NEG (NEG); NITRITE,URINE NEG (NEG); SQUAMOUS EPITHELIAL CELL,UR FEW /LPF; UROBILINOGEN,URINE 0.2 mg/dL (0.2 mg/dL)
--- NOTE | 2021-01-25 22:28 | EKG ---
[address] [address] Test Date: 2021-01-25 Test Time: 18:11:13 Pat Name: ESTRELLA JOSEPH Department: Room: Gender: F Systems Planner: HUY : [id number] Requested By: ROLAND DELANEY Order Number: [id number] Reading MD: Tavo Morgan MD Measurements Intervals [place] Rate: 71 P: 68 PA: 160 QRS: 77 QRSD: 78 T: 70 QT: 372 QTc: 404 Interpretive Statements SINUS RHYTHM Electronically Signed On 01-28-2021 10:39:43 CDT by Tavo Morgan MD
== END 2021-01-25 20:30 | disposition short-term general hospital (02) ==
LOC: ER 16:27
DX: S72.001A Fracture of unspecified part of neck of right femur, initial encounter for closed fracture (principal); I10 Essential (primary) hypertension; Z20.822 Contact with and (suspected) exposure to COVID-19; W18.39XA Other fall on same level, initial encounter; Y93.89 Activity, other specified; Y92.89 Other specified places as the place of occurrence of the external cause; Y99.8 Other external cause status
CPT/HCPCS: 36415; 73502; 80053; 81001; 85025; 87086; 87426; 93005; 96374; 99285; C9803; J2270; U0003